=== PATIENT | female | born 1965 | race Two or more races ===

== ENCOUNTER 2019-02-14 11:40 | Emergency (ER) | payer MEDICAID, OTHER ==
[~2019-02-14] VITALS: Ht 172.7 cm; Wt 74.4 kg
[2019-02-14 14:03] VITALS: BP 150/92
== END 2019-02-14 14:10 | disposition home or self-care (01) ==
LOC: ER 11:42
DX: M54.41 Lumbago with sciatica, right side (principal); G89.29 Other chronic pain; Z88.5 Allergy status to narcotic agent